=== PATIENT | female | born 2000 | race Caucasian/White ===

== ENCOUNTER → 2023-10-01 | Emergency (ER) | payer SELFPAY ==
[~2023-10-01] MED LIST: HYDROCODONE/APAP 10/325 TAB ONE; IBUPROFEN 200 MG TAB PO ONE; IBUPROFEN 400 MG TAB ONE; ONDANSETRON 4 MG (ODT) TAB ONE
[2023-10-01 05:23] LABS: Specific Gravity 1.005 (1.005-1.030)
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
[2023-10-01 09:08] VITALS: BP 157/89; TEMP 98.6; O2SAT 99
--- NOTE | 2023-10-01 17:51 | RAD REPORT ---
EXAM DESCRIPTION: Wrist Right 3 View XR Right Wrist 3 Views CLINICAL HISTORY: Right wrist injury COMPARISON: None. TECHNIQUE: Right Wrist 3 Views FINDINGS: No fracture or dislocation. No significant sclerotic/lytic bone lesion. Joint spaces unremarkable. Soft tissues unremarkable. IMPRESSION: Normal Right Wrist Radiographs. Electronically signed by: Justin Swanson MD 10/01/2023 06:14 AM PLASTER APPLICATOR Due to temporary technical issues with the PACS/Fluency reporting system, reports are being signed by the in house radiologists without review as a courtesy to insure prompt reporting. The interpreting radiologist is fully responsible for the content of the report.
--- NOTE | 2023-10-01 18:03 | RAD REPORT ---
EXAM DESCRIPTION: XR Right Hand Complete, 3 or More Views CLINICAL HISTORY: The patient is 23 years old and is Female; R hand injury TECHNIQUE: Frontal, lateral and oblique views of the right hand. COMPARISON: No relevant prior studies available. FINDINGS: Bones/joints: Unremarkable. No acute fracture. No dislocation. Soft tissues: Unremarkable. No radiopaque foreign body. IMPRESSION No acute fracture or dislocation. Electronically signed by: Brian Gutierrez MD 10/01/2023 06:01 AM PATIENT RELATIONS DIRECTOR Due to temporary technical issues with the PACS/Fluency reporting system, reports are being signed by the in house radiologists without review as a courtesy to insure prompt reporting. The interpreting radiologist is fully responsible for the content of the report.
== END ==
LOC: ER 04:07
DX: S67.21XA Crushing injury of right hand, initial encounter (principal); S60.511A Abrasion of right hand, initial encounter; S67.10XA Crushing injury of unspecified finger(s), initial encounter
CPT/HCPCS: 36415; 81025; 99284; Q0162